=== PATIENT | male | born 1995 | race Caucasian/White ===

== ENCOUNTER 2018-10-02 23:08 | Emergency (ER) | payer OTHER ==
[2018-10-02] MEDS ORDERED: cefTRIAXone 1 GM Vial IM ONE (23:54)
[2018-10-02] MEDS ORDERED: Diphtheria,Pertussis(Acell),Tetanus Vaccine 0.5 ML SDV IM ONE (23:54)
[2018-10-02] MEDS ORDERED: Ketorolac 60 MG/2 ML SDV IM ONE (23:54)
--- NOTE | 2018-10-02 23:55 | EDM.PDOC ---
ED HPI GENERAL MEDICAL PROBLEM - General Chief Complaint: Lower Extremity Injury/Pain Stated Complaint: STEPPED ON A NAIL Time Seen by Provider: 10/02/18 23:27 Source of Information: Reports: Patient History Limitations: Reports: No Limitations - History of Present Illness INITIAL COMMENTS - FREE TEXT/NARRATIVE: 22 y.old male stepped in a nail while working at home at 1 pm. the metal nail came out in his full length. No FB is likely to be in the wound. Pt has pain when walking his forefoot. No bleed no erythema. No N/V/D no SOB or any other acute med issues. BP 133/74 RR 18 Pulse ox 100% on RA Temp 36.7 pulse 73 Onset Date: 10/02/18 Onset Time: 13:00 Duration: Hour(s): Location: Reports: Lower Extremity, Right (foot) Quality: Reports: Burning, Dull, Stabbing, Throbbing Severity: Moderate Improves with: Reports: Rest Worsens with: Reports: Movement Context: Reports: Trauma Associated Symptoms: Reports: No Other Symptoms R foot Pain Score (Numeric/FACES): 6 - Related Data Allergies Allergy/AdvReac Type Severity Reaction Status Date / Time No Known Allergies Allergy Verified 10/02/18 23:29 Home Meds: Home Meds Cephalexin [Keflex] 500 mg PO Q6HR #40 capsule 10/03/18 [Rx] Past Medical History - Past Health History Medical/Surgical History: Denies Medical/Surgical History Psychiatric History: Reports: Anxiety, Bipolar, Depression, Psych Hospitalization(s), Suicide Attempt Social & Family History - Family History Family Medical History: Noncontributory - Tobacco Use Smoking Status *Q: Current Every Day Smoker Years of Tobacco use: 4 Packs/Tins Daily: 0.4 - Caffeine Use Caffeine Use: Reports: Energy Drinks - Alcohol Use Days Per Week of Alcohol Use: 1 Number of Drinks Per Day: 1 Total Drinks Per Week: 1 - Recreational Drug Use Recreational Drug Use: No Review of Systems - Review of Systems Review Of Systems: See Below Constitutional: Reports: No Symptoms Eyes: Reports: No Symptoms Ears: Reports: No Symptoms Nose: Reports: No Symptoms Mouth/Throat: Reports: No Symptoms Respiratory: Reports: No Symptoms Cardiovascular: Reports: No Symptoms GI/Abdominal: Reports: No Symptoms Genitourinary: Reports: No Symptoms Musculoskeletal: Reports: No Symptoms Skin: Reports: No Symptoms Neurological: Reports: No Symptoms Psychiatric: Reports: No Symptoms ED EXAM, GENERAL - Physical Exam Exam: See Below Exam Limited By: No Limitations General Appearance: Alert, WD/WN, Mild Distress Eye Exam: Bilateral Eye: Normal Inspection Ears: Normal External Exam, Normal Canal Ear Exam: Bilateral Ear: Auricle Normal Nose: Normal Inspection, Normal Mucosa, No Blood Throat/Mouth: Normal Inspection, Normal Lips, Normal Teeth, Normal Gums, Normal Voice, No Airway Compromise Head: Atraumatic, Normocephalic Neck: Normal Inspection, Supple Respiratory/Chest: No Respiratory Distress Cardiovascular: Normal Peripheral Pulses, Regular Rate, Rhythm, No Edema, No Gallop, No Murmur, No Rub Peripheral Pulses: 2+: Carotid (R) GI/Abdominal: Normal Bowel Sounds, Soft, Non-Tender, No Organomegaly, No Abnormal Bruit, Pelvis Stable (Male) Exam: Deferred Rectal (Males) Exam: Deferred Back Exam: Normal Inspection, Full Range of Motion Extremities: Normal Range of Motion, Non-Tender, Normal Capillary Refill, Other (Tender ant plantar right anterior foot with a small punctured wound, not bleeding, no erythema. ) Neurological: Alert, Oriented, CN II-XII Intact, Normal Cognition, Abnormal Gait (due to right forefoot pain) Psychiatric: Normal Affect, Normal Mood Skin Exam: Warm, Dry, Wound/Incision (punctured wound right foot, minor) Lymphatic: No Adenopathy Course - Vital Signs Text/Narrative:: 22 y.old male stepped in a nail while working at home at 1 pm. the metal nail came out in his full length. No FB is likely to be in the wound. Pt has pain when walking his forefoot. No bleed no erythema. No N/V/D no SOB or any other acute med issues. BP 133/74 RR 18 Pulse ox 100% on RA Temp 36.7 pulse 73 PE: WNWD W M wth a punctured wound at his right forefoot Imaging: Not indicated Impression: Punctured wound right foot Tx: wound care, soaked foot in Betadine solution, Tetanus Immunization, Rocephin and Toradol Reexam: Improved Plan: D/C with instructions Last Recorded V/S: Last Vital Signs Temp 36.5 C 10/02/18 23:27 Pulse 54 L 10/03/18 00:40 Resp 18 10/03/18 00:40 BP 105/78 10/03/18 00:40 Pulse Ox 100 10/03/18 00:40 - Orders/Labs/Meds Meds: Medications Discontinued Medications Generic Name Dose Route Start Last Admin Trade Name Delfin PRN Reason Stop Dose Admin Ceftriaxone Sodium 1 gm 10/02/18 23:54 10/03/18 00:08 Rocephin IM 10/02/18 23:55 1 gm ONETIME ONE Administration Diphtheria/Tetanus/Acell Pertussis 0.5 ml 10/02/18 23:54 10/03/18 00:07 Adacel IM 10/02/18 23:55 0.5 ml .ONCE ONE Administration Ketorolac Tromethamine 60 mg 10/02/18 23:54 10/03/18 00:09 Toradol IM 10/02/18 23:55 60 mg ONETIME ONE Administration Departure - Departure Time of Disposition: 23:56 Disposition: Home, Self-Care 01 Condition: Good Clinical Impression: Puncture wound of right foot - Discharge Information Prescriptions: Cephalexin [Keflex] 500 mg PO Q6HR #40 capsule Instructions: Puncture Wound, [id number], Ketorolac injection, Ceftriaxone injection, VIS, Tetanus, Diphtheria, and Pertussis (Tdap) - CDC (05/03/2014) Referrals: PCP,None [Primary Care Provider] - Forms: ED Department Discharge Additional Instructions: Ice, rest and elevation, Motrin for pain, Keflex as recommended, soak food twice daily in Betadine, for 5 days please follow up, come back if your symptoms get worse acutely.
[2018-10-03 01:06] VITALS: BP 105/78; PULSE 54
== END 2018-10-03 00:49 | disposition home or self-care (01) ==
LOC: FB.ED 23:08
DX: S91.331A Puncture wound without foreign body, right foot, initial encounter (principal); F17.210 Nicotine dependence, cigarettes, uncomplicated; Z23 Encounter for immunization; W45.0XXA Nail entering through skin, initial encounter
CPT/HCPCS: 90471; 90715; 96372; 99283; J0696; J1885